=== PATIENT | female | born 1965 | race Caucasian/White ===

== ENCOUNTER 2023-04-02 12:27 | Emergency (ER) | payer MEDICARE, SELFPAY ==
[2023-04-02 12:37] VITALS: BP 130/79; PULSE 90; RESP 18; TEMP 36.9; O2SAT 98
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
[2023-04-02 13:15] LABS: Lactate 1.4 mmol/L (0.6-1.4)
[2023-04-02] MEDS: Lactated Ringers 1,000 ML 1000 ML IV (13:15)
[2023-04-02] MEDS: ACETAMINOPHEN 1,000 MG/100 ML BTL 400 MG IVPB (13:15)
[2023-04-02] MEDS: Normal Saline 50 ML (13:15)
[2023-04-02 13:17] LABS: Bilirubin Negative (Negative); Blood Small (Negative); Clarity Cloudy (Clear); Glucose Negative (Negative); Ketones Negative (Negative); Leukocyte Esterase Moderate (Negative); Nitrite Positive (Negative); Specific Gravity 1.015 (1.005-1.025); Urobilinogen 0.2 mg/dL (Up to 0.2)
[2023-04-02 13:19] LABS: Abs Immature Grans 0.05 10^3/uL (0.0-0.06); Absolute Basophil Count 0.06 10^3/uL (0.0-0.2); Absolute Eosinophil Count 0.13 10^3/uL (0.0-0.7); Absolute Lymphocyte Count 2.36 10^3/uL (1.2-3.4); Absolute Monocyte Count 1.45 10^3/uL (0.1-0.8); Absolute Neutrophil Count 10.73 10^3/uL (1.2-6.7); Basophils % 0.4; Eosinophils % 0.9; HCT 44.9 % (36.0-46.0); Immature Grans % 0.3; MCH 30.2 pg (27.0-33.0); MCHC 33.4 % (32.0-36.0); MCV 90 fL (80-95); MPV 10.5 fL (8.0-11.0); Monocytes % 9.8; Neutrophils % 72.6; Platelet Count 402 10^3/uL (130-400); RBC 4.97 10^6/uL (3.93-5.22); RDW 13.2 % (11.7-14.6); RDW-SD 44.6 fL; WBC 14.78 10^3/uL (4.4-10.8)
[2023-04-02 13:22] LABS: ESR 5 mm/hr (0-30)
[2023-04-02 13:25] LABS: WBC 20-50 HPF (0-5)
[2023-04-02 13:26] LABS: Bacteria Many HPF (Negative); C & S Indicated? Yes; Casts Negative LPF (Negative); Crystals Negative HPF (Negative); Epithelial Cells Few HPF (Negative); Mucus Negative (Negative)
[2023-04-02 13:30] LABS: C-Reactive Protein 0.95 mg/dL (0.0-0.3); Lipase 53 U/L (16-77)
[2023-04-02] MEDS: Pantoprazole 40 MG VIAL IVP (13:30)
[2023-04-02 13:50] LABS: ALT 18 U/L (14-59); AST 13 U/L (15-37); Albumin 3.5 g/dL (3.4-5.0); Alkaline Phosphatase 89 U/L (46-116); Anion Gap 9.7 mmol/L (3-11); BUN 8 mg/dL (7-18); Bilirubin, Total 0.3 mg/dL (0.2-1.0); CO2 26.3 mmol/L (21.0-32.0); Calcium 8.9 mg/dL (8.5-10.1); Chloride 104 mmol/L (98-107); Glucose 93 mg/dL (74-106); Magnesium 2.3 mg/dL (1.8-2.4); Potassium 3.8 mmol/L (3.5-5.1); Sodium 140 mmol/L (136-145); Total Protein 6.9 g/dL (6.4-8.2); Troponin I < 50 ng/L (<or=60)
[2023-04-02] MEDS: Omnipaque 350 MG/ML 100 ML BTL IJ (14:28)
[2023-04-02] MEDS: Normal Saline - Diluent 50 ML VIAL IJ (14:29)
--- NOTE | 2023-04-02 14:35 | DI.CT_ITS ---
Exam(s) CT ABDOMEN PELVIS W EXAM: CT ABDOMEN PELVIS W CLINICAL HISTORY: LLQ tenderness. TECHNIQUE: Imaging Protocol: Axial computed tomography images with coronal and sagittal reformatted images were created and reviewed CONTRAST MATERIAL: Intravenous: Omnipaque 350 Contrast volume:100 ml Oral: / no COMPARISON: No exams were available for comparison FINDINGS: ABDOMEN and PELVIS: Lung Bases: No acute findings. Liver: Normal density. No measurable mass. Gallbladder and biliary tract: No radiodense calculus or dilation. Pancreas: Normal density. No abnormal calcifications or inflammatory process. No evidence of mass. Spleen: Normal. Kidneys: Normal size, contour and axis. nonobstructing stone lower pole left kidney. No obstructive uropathy. No suspicious masses seen. Adrenal glands: small left adrenal adenoma. no follow-up recommended. Vasculature: Abdominal aorta non-dilated. Atherosclerotic changes. Soft tissues: Unremarkable. Bladder: No gross wall thickening. No calculi.No focal mass. Bowel: No obstruction. Diffuse colonic wall thickening, consistent with colitis. Scattered diverti cula. Appendix normal. Peritoneal cavity: No ascites. No focal collection or mesenteric inflammatory response. Bones: Unremarkable for age. Reproductive organs: metallic density within uterus. Clinical correlation recommended. Lymph nodes: Unremarkable. IMPRESSION:: Findings consistent with diffuse colitis. Findings called to Abdoulaye Mccormick of the emergency department. RADIATION DOSE DELIVERED: Total DLP DATA REPOSITORY: All CT scans at this facility are submitted to the National Radiology Data Registry (NRDR) Dose Index Registry (DIR) with the [employer] (ACR). RADIATION OPTIMIZATION: All CT scans at this facility use at least one of these dose optimization te chniques: automated exposure control; mA and/or kV adjustment per patient size (includes targeted exa ms where dose is matched to clinical indication); or iterative reconstruction.
[2023-04-02 15:05] VITALS: O2SAT 98
[2023-04-02 15:06] VITALS: BP 113/68; PULSE 75; O2SAT 98
[2023-04-02 15:10] VITALS: O2SAT 98
== END 2023-04-02 15:25 | disposition home or self-care (01) ==
PROVIDERS: Emergency Provider Physician Assistant
DX: R10.32 Left lower quadrant pain (principal); N39.0 Urinary tract infection, site not specified; K29.70 Gastritis, unspecified, without bleeding; R11.0 Nausea; K52.9 Noninfective gastroenteritis and colitis, unspecified
CPT/HCPCS: 36415; 80053; 81025; 83690; 85652; 87077; 96361; 96374; 96375; 99285; 74177; 81003; 81015; 83605; 83735; 84484; 85025; 86140; 87086; 87186; 99283; J0131; J3490

== ENCOUNTER → 2023-04-15 10:51 | Outpatient (BNVA) | payer MEDICARE, SELFPAY | PROVIDERS: Visit Provider Surgery | DX: R19.7 Diarrhea, unspecified (principal); R53.83 Other fatigue; D36.9 Benign neoplasm, unspecified site; K29.70 Gastritis, unspecified, without bleeding; R10.9 Unspecified abdominal pain; R14.0 Abdominal distension (gaseous) | CPT/HCPCS: 99215 ==

== ENCOUNTER 2023-04-19 04:30 | Outpatient (CLI) | payer MEDICARE, SELFPAY ==
[2023-04-19 12:08] LABS: Abs Immature Grans 0.03 10^3/uL (0.0-0.06); Absolute Basophil Count 0.09 10^3/uL (0.0-0.2); Absolute Eosinophil Count 0.14 10^3/uL (0.0-0.7); Absolute Lymphocyte Count 3.33 10^3/uL (1.2-3.4); Absolute Monocyte Count 0.87 10^3/uL (0.1-0.8); Basophils % 0.7; Eosinophils % 1.1; HCT 42.6 % (36.0-46.0); HGB 13.8 g/dL (11.2-15.7); Immature Grans % 0.2; Lymphocytes % 25.7; MCH 29.2 pg (27.0-33.0); MCHC 32.4 % (32.0-36.0); MCV 90 fL (80-95); MPV 9.3 fL (8.0-11.0); Monocytes % 6.7; Neutrophils % 65.6; Platelet Count 383 10^3/uL (130-400); RBC 4.72 10^6/uL (3.93-5.22); RDW 13.2 % (11.7-14.6); RDW-SD 43.7 fL; WBC 12.95 10^3/uL (4.4-10.8)
[2023-04-19 12:18] LABS: C-Reactive Protein 0.67 mg/dL (0.0-0.3)
[2023-04-22 12:14] LABS: Lyme Ab w Rflx to Lyme Confirm Positive (Negative)
[2023-04-22 13:29] LABS: Lyme IgG Ab Positive (Negative); Lyme IgM Ab Negative (Negative)
[2023-04-22 14:47] LABS: ANCA Interpretation Negative (Negative)
[2023-04-23 00:51] LABS: Anaplasma phagocytophilum Negative (Negative); B. miyamotoi PCR Negative (Negative); Babesia divergens/MO-1 Negative (Negative); Babesia duncani Negative (Negative); Babesia microti Negative (Negative); Ehrlichia chaffeensis Negative (Negative); Ehrlichia ewingii/canis Negative (Negative); Ehrlichia muris eauclairensis Negative (Negative)
== END 2023-04-19 04:31 | disposition home or self-care (01) ==
LOC: LBO 04:30
PROVIDERS: Visit Provider Surgery
DX: D36.9 Benign neoplasm, unspecified site (principal); K52.9 Noninfective gastroenteritis and colitis, unspecified; N39.0 Urinary tract infection, site not specified; R14.0 Abdominal distension (gaseous); R53.83 Other fatigue; C50.919 Malignant neoplasm of unspecified site of unspecified female breast
CPT/HCPCS: 36415; 86255; 86617; 87505; 87798; 85025; 86140; 86618

== ENCOUNTER 2023-04-19 11:54 | Outpatient (REF) | payer MEDICARE, SELFPAY ==
[2023-04-19 21:13] LABS: Campylobacter PCR Negative (Negative); Salmonella PCR Negative (Negative); Shiga Toxin PCR Negative (Negative); Shigella/Enteroinvasive Ecoli Negative (Negative)
[2023-04-23 18:18] LABS: Calprotectin 147 mcg/g
== END 2023-04-19 11:55 | disposition home or self-care (01) ==
LOC: LBN 11:54
PROVIDERS: Visit Provider Surgery
DX: D36.9 Benign neoplasm, unspecified site (principal); K29.70 Gastritis, unspecified, without bleeding; K52.9 Noninfective gastroenteritis and colitis, unspecified; N39.0 Urinary tract infection, site not specified; R53.83 Other fatigue
CPT/HCPCS: 87505; 83993

== ENCOUNTER 2023-04-23 10:57 | Day surgery (SDC) | payer MEDICARE, SELFPAY ==
--- NOTE | 2023-04-22 18:06 | ANES.PREOP_ITS ---
General Info Date of Service Date Performed: 04/23/23 Height: 5 ft 3 in Weight: 62.766 kg Body Mass Index (BMI): 24.5 Surgical Procedure: Operation Date: 04/23/23 12:35 Proposed Procedure Side Surgeon p Colonoscopy/Gastroscopy Jaun Null MD Meds Allergies and Home Medications Allergies Allergy/AdvReac Type Severity Reaction Status Date / Time doxycycline Allergy Severe Anaphylaxis Unverified 04/23/23 11:38 tetracycline Allergy Severe Anaphylaxis Unverified 04/23/23 11:38 Home Medication Medication Instructions Recorded pantoprazole 20 mg tablet,delayed 20 mg PO DAILY gastritis 30 days 04/02/23 release #30 tabs albuterol 90 mcg-budesonide 80 2 inh inhalation ONCE PRN 04/15/23 mcg/actuation HFA aerosol inhaler atorvastatin 40 mg tablet 40 mg PO QHS 04/15/23 cholecalciferol (vitamin D3) 125 125 mcg PO DAILY 04/15/23 mcg (5,000 unit) capsule clonazepam 1 mg tablet 1 mg PO DAILY PRN 04/15/23 lisinopril 40 mg tablet 40 mg PO DAILY 04/15/23 lithium carbonate 600 mg capsule 600 mg PO QHS 04/15/23 mecobalamin (vitamin B12) 1,000 1,000 mcg PO DAILY 04/15/23 mcg chewable tablet paroxetine HCl 30 mg tablet (Paxil) 30 mg PO DAILY 04/15/23 trazodone 100 mg tablet 100 mg PO QHS 04/15/23 Current Visit Medications: Current Medications Generic Name Dose Route Start Last Admin Trade Name Freq PRN Reason Stop Dose Admin Ringer's Solution 1,000 mls @ 80 mls/hr 04/23/23 06:00 IV 04/23/23 23:59 INFUSION ALEXA IV Miscellaneous Supplies 1 each 04/23/23 06:00 Iv Access IV 04/23/23 23:59 DIRECTED ALEXA Sodium Chloride 0 ml 04/23/23 06:00 Normal Saline Flush 10 Ml Syr IV 04/23/23 23:59 PRN PRN Sodium Chloride 0 ml 04/23/23 06:00 Normal Saline 10 Ml Vial IJ 04/23/23 23:59 DIRECTED PRN Sterile Water 0 ml 04/23/23 06:00 Water,Injection,Sterile 10 Ml Vial IJ 04/23/23 23:59 DIRECTED PRN PFSH Active Problems Active Problems: Problem Status Onset Code Abdominal bloating R14.0 Abdominal pain R10.9 Ileocolitis K52.9 Adenomatous polyps D36.9 Acute diarrhea R19.7 Fatigue R53.83 Gastritis K29.70 Urinary tract infection N39.0 Colitis K52.9 Medical History Medical History (Updated 04/23/23 @ 11:34 by Monae Churchill RN) Smoker Vertigo Fibroid uterus pt unaware of this diagnosis, never been discussed with pt [employer] (inclusion body myositis) Dysuria Peripheral artery disease Anxiety Depression HLD (hyperlipidemia) Asthma Systemic hypertension Tobacco Smoking/Tobacco Use Status: Current every day Tobacco Type: cigarettes Smoking cigarettes per day: 5 Alcohol Alcohol Intake: current Alcohol intake frequency: holidays/special occasions only Alcohol type: beer and wine Substance Use Substance use type: does not use Vital Signs and Lab Results Vital Signs Most Recent Vital Signs in EMR: Temp Pulse Resp BP Pulse Ox 36.0 C L 76 16 137/86 97 04/23/23 11:27 04/23/23 11:27 04/23/23 11:27 04/23/23 11:27 04/23/23 11:27 Lab Results Blood Type / Crossmatch: No Data to Display Complete Blood Count: White Blood Count 12.95 10^3/uL (4.4-10.8) H 04/19/23 11:54 Red Blood Count 4.72 10^6/uL (3.93-5.22) 04/19/23 11:54 Hemoglobin 13.8 g/dL (11.2-15.7) 04/19/23 11:54 Hematocrit 42.6 % (36.0-46.0) 04/19/23 11:54 Platelet Count 383 10^3/uL (130-400) 04/19/23 11:54 Venous Blood Lactate 1.4 mmol/L (0.6-1.4) 04/02/23 13:13 Complete Metabolic Panel: Sodium 140 mmol/L (136-145) 04/02/23 12:50 Potassium 3.8 mmol/L (3.5-5.1) 04/02/23 12:50 Chloride 104 mmol/L (98-107) 04/02/23 12:50 Carbon Dioxide 26.3 mmol/L (21.0-32.0) 04/02/23 12:50 BUN 8 mg/dL (7-18) 04/02/23 12:50 Creatinine 1.0 mg/dL (0.55-1.02) 04/02/23 12:50 Est GFR (CKD-EPI 2020) 65.30 (mL/min/1.73m2) 04/02/23 12:50 Magnesium 2.3 mg/dL (1.8-2.4) 04/02/23 12:50 Calcium 8.9 mg/dL (8.5-10.1) 04/02/23 12:50 Albumin 3.5 g/dL (3.4-5.0) 04/02/23 12:50 Glucose 93 mg/dL (74-106) 04/02/23 12:50 C-Reactive Protein 0.67 mg/dL (0.0-0.3) H 04/19/23 11:54 Liver Function Panel: Alanine Aminotransferase (ALT/SGPT) 18 U/L (14-59) 04/02/23 12: 50 Aspartate Amino Transf (AST/SGOT) 13 U/L (15-37) L 04/02/23 12: 50 Coagulation Panel: No Data to Display Cardiac Panel: Troponin I < 50 ng/L (<or=60) 04/02/23 Arterial Blood Gas: No Data to Display Venous Blood Gas: No Data to Display Pancreas Panel: Lipase 53 U/L (16-77) 04/02/23 12:50 Thyroid Panel: No Data to Display Infectious Disease: No Data to Display Blood Cultures: No Data to Display Toxicology Panel: No Data to Display Anesthesia Assessment and Plan Anesthesia History Personal History: No History of Anesthesia Complications Family History: No Family History of Anesthesia Complications Exercise Tolerance Exercise Tolerance: Metabolic Equivalents>4 Cardiac & Pulmonary Exam Cardiac Exam: Normal S1/S2 Heart Sounds Pulmonary Exam: Clear Bilateral Breath Sounds Implantable Cardiac Device Does patient have a Pacemaker or an ICD?: No Airway Exam Known Difficult Airway: No Mallampati Class: 3 Mouth Opening: Narrow (< 3cm) Thyromental Distance: Less than 3 cm Neck Range of Motion: Full ROM Neck Circumference: Normal Teeth Condition: Normal Dentition ASA Classification ASA Score: ASA 2 Emergency Case?: No NPO Status NPO Status: NPO Clears >2 hours, Solids >8 hours Anesthesia Plan Resuscitation Status: Full Code Anesthesia Technique: General Anesthesia Airway Planned: Natural Airway Monitors Used: Standard Monitors Preoperative Comments:: 58 yo female for egd/colo. Sig PMHx: HTN, PAD (legs), asthma, depression/anxiety, daily smoker, occ EtOH. Previous Anes: - colo at [facility], no record, but listed no complications on op note.
[2023-04-23 11:27] VITALS: BP 137/86; PULSE 76; RESP 16; TEMP 36; O2SAT 97
[2023-04-23 11:57] VITALS: BMI 24.5
--- NOTE | 2023-04-23 12:07 | COLE_ITS ---
Date of service: 04/23/23 Time of Service: 12:07 Colonoscopy Report Procedure Description: PROCEDURES PERFORMED: 1. Colonoscopy with cold forceps biopsies PREOPERATIVE DIAGNOSIS: Colon polyp, colitis, diarrhea POSTOPERATIVE DIAGNOSIS: Pandiverticulosis, mild hemorrhoids SURGEON: Arely Null MD INDICATION FOR PROCEDURE: The patient is a 58-year-old woman who has been having some bowel habit changes. She has had diarrhea now for couple of years. She has cramping abdominal pain on and off. She has had ER visits and cross- sectional imaging suggesting colitis. Aside from this, she has a history of a persistent colon polyp and has required annual colonoscopies to keep removing it each time. There is no family history of colon cancer. FINDINGS: Terminal ileum looked normal. Cold forceps biopsies were taken here to assess microscopically. The mucosa throughout all appeared normal and without inflammation. Random cold forceps biopsies were taken because of her symptoms. The tattoo site is probably about mid transverse colon. It is definitely distal to the hepatic flexure. I did not see any residual polyp or visible evidence of regrowth. There were no new polyps. There are scattered, rare diverticuli throughout her entire colon but without evidence of inflammation. Mild internal (grade 1) and external hemorrhoids were noted. SURVEILLANCE interval/FOLLOW-UP: Considering the history of a polyp with high- grade dysplasia and that this colonoscopy is only 3-4 months since that resection, I would say another colonoscopy should be done in a year. She should follow-up with her GI doctors and/or PCP. SPECIMENS: Yes EBL: Minimal COMPLICATIONS: None QUALITY of prep: Excellent Procedure in detail: The patient gave written consent and was in agreement with the indications, the potential risks as well as the benefits of the procedure. She was turned from upper endoscopy (see separate procedure note) and kept in the same position and anesthesia was continued. I started the colonoscopy portion of the procedure. Digital rectal and visual examination was performed and grossly within normal limits. A well-lubricated flexible colonoscope was then introduced and passed without any notable difficulty all the way to the cecum identified by the ileocecal valve and the appendiceal orifice. The terminal ileum was intubated and appeared normal visually. The scope was then slowly withdrawn with the above-noted findings. The patient tolerated the procedure well and was taken to the PACU in hemodynamically stable condition.
--- NOTE | 2023-04-23 12:07 | W.PM.ENDDOP ---
Date of service: 04/23/23 Time of Service: 12:07 Endoscopy Report PROCEDURE DESCRIPTION: PROCEDURES PERFORMED: 1. EGD with biopsies PREOPERATIVE DIAGNOSIS: Epigastric pain POSTOPERATIVE DIAGNOSIS: Normal foregut SURGEON: Arely Null MD INDICATION for procedure: 58-year-old woman who had an episode of epigastric pain about a month ago or so and was placed on antacid medication and had resolving symptoms leading to a presumed diagnosis of gastritis/peptic ulcer disease warranting EGD assessment. FINDINGS: D2/D3 = normal -multiple biopsies were taken (x 4) to rule out celiac disease D1/bulb = normal - no ulcers or inflammation Pylorus = normal Antrum = normal appearance, no ulcers, cold forceps biopsies were taken to rule out H. pylori routinely Body = normal appearance, biopsies taken with cold forceps technique routinely Fundus = normal, no polyps Cardia = normal Hiatus = no hiatal hernia Distal esophagus = no inflammation, no esophagitis, no Xiao's, no stricture. I did not take biopsies because it appeared normal and she has no symptoms to suggest esophagus problems. Mid esophagus = normal Proximal esophagus/hypopharynx/vocal cords = normal SURVEILLANCE-INTERVAL/FOLLOW-UP: Follow-up with PCP and/your GI doctors, no surveillance necessary Specimens: Yes EBL: Minimal COMPLICATIONS: None Procedure in detail: The patient gave written consent and was in agreement with the indications, the potential risks as well as the benefits of the procedure. The patient was taken to the endoscopy suite and laid on their left side. Anesthesia was given which was tolerated well. We performed a timeout and we are in agreement I started the procedure. A well-lubricated endoscope was gently and carefully advanced down the esophagus, into the stomach the scope was and through the pylorus into the duodenum. The scope was then slowly withdrawn with the above-noted findings/interventions. The patient tolerated the procedure well and was then turned for colonoscopy (see separate procedure note).
--- NOTE | 2023-04-23 12:09 | W.PM.DSUDISC ---
Date of service: 04/23/23 Time of Service: 12:09 Discharge Plan Disposition Patient Disposition: Home Condition: Good Discharge Details Attending Provider: Jaun Null Primary Care Provider: Cecelia,Local Home Meds and New Rx's Prescriptions: No Action trazodone 100 mg tablet 100 mg PO QHS clonazepam 1 mg tablet 1 mg PO DAILY PRN lithium carbonate 600 mg capsule 600 mg PO QHS paroxetine HCl [Paxil] 30 mg tablet 30 mg PO DAILY lisinopril 40 mg tablet 40 mg PO DAILY atorvastatin 40 mg tablet 40 mg PO QHS albuterol-budesonide 90-80 mcg/actuation HFA aerosol inhaler 2 inh inhalation ONCE PRN Rx Instructions: as a single dose; may repeat up to 6 doses per day (12 inhalations) mecobalamin (vitamin B12) 1,000 mcg tablet,chewable 1,000 mcg PO DAILY cholecalciferol (vitamin D3) 125 mcg (5,000 unit) capsule 125 mcg PO DAILY pantoprazole 20 mg tablet,delayed release (DR/EC) 20 mg PO DAILY 30 Days Qty: 30 0RF Discharge Instructions Additional Instructions: FINDINGS: On your upper endoscopy, your esophagus, stomach in the beginning of your small intestine all look normal. No ulcers were found. No inflammation was seen. It all looks healthy. As promised, I took multiple biopsies at all of these locations to assess the microscopically but these results might come back as completely normal. On the colonoscopy, no inflammation was seen. The end of your small intestine was visualized and biopsies were taken there but this also appeared normal. I took biopsies throughout your entire colon randomly in order to assess it under a microscope. You do have MILD diverticulosis which is an extremely common condition, benign and usually causes no symptoms whatsoever. Diverticulosis is NOT the cause of your diarrhea and would not be the explanation for possible colitis that was seen on your CT scan. Mild hemorrhoid disease is also present but again, benign and if it does not cause symptoms, nothing needs to be done about it. Also on the colonoscopy, the tattoo site from the prior polyp removal was seen. There is no visible evidence that the polyp is growing back with any remains. You should probably do another colonoscopy in 1 year because of that polyp removal however. Follow-up with your regular GI doctor(s) and/your primary care physician. Stand Alone Forms: Colonoscopy Post Instructions Activity:: Activity as Tolerated Diet:: As Tolerated
[2023-04-23] MEDS: Lactated Ringers 1,000 ML 80 ML IV (12:25)
--- NOTE | 2023-04-23 12:33 | W.ANESVAS ---
Peripheral IV Placement Date Performed: 04/23/23 Procedure Time: 12:20 Requesting Provider: Yefri Josue Procedure Location: Day Surgery Unit Sedation Given (Indicate Dose Given): No Sedation given Patient Mental Status: Awake Laterality: Left Insertion Site: Antecubital Size & Type: 20 ga. Dressing: Tegaderm Applied Ultrasound: Sterile probe cover and gel used Ultrasound Image Saved?: Yes Number of Attempts (See previous attempts in note section): 2 Procedure Tolerated: No Complications Procedure Outcome: Successful Performed By: Yefri Josue
--- NOTE | 2023-04-23 12:42 | BOWEL_PTH ---
PATIENT: Angle Barbosa LOC: [facility] U#:[id number] AGE/SX: 58/F ROOM: RE04/23/[address]: Jaun Null : 1965 BED: DIS: 04/23/2023 SPEC #: [id number] RECD: 04/23/23 16:07 STATUS: LEATHA [place] #: [id number] GERARDO: 04/23/23 12:[address]: Jaun Null DEPT: Surgical Specimen RECD BY: Anjelica Tineo ENTERED: 04/23/23 16:09 SP TYPE: Bowel OTHR DR: No Local Tissues: 1 - BIOPSY BOWEL 2 - STOMACH BIOPSY 3 - STOMACH BIOPSY 4 - BIOPSY BOWEL 5 - BIOPSY BOWEL Procedures: GROSS AND MICRO LEVEL 4 Comments: [id number]
[2023-04-23 13:18] VITALS: BP 127/69; PULSE 74; RESP 16; TEMP 36.2; O2SAT 99
--- NOTE | 2023-04-23 13:21 | W.ANESPOSTOP ---
Postoperative Evaluation Date, Time and Location Date Performed: 04/23/23 Time Performed: 13:21 Patient Location: Day Surgery Unit Vital Signs Most Recent Imported Vital Signs: Most Recent Vital Signs Temp Pulse Resp BP Pulse Ox 36.2 C L 74 16 127/69 99 04/23/23 13:18 04/23/23 13:18 04/23/23 13:18 04/23/23 13:18 04/23/23 13:18 Pain Score Most Recent Pain Score: Most Recent Pain Score Pain Level 0 04/23/23 13:18 Assessment Mental Status: Arousable with meaningful communication Airway and Respiratory Function: Patent airway with normal (patient baseline) respiratory exam Cardiovascular Function: Hemodynamically Stable Hydration Status: Adequately Hydrated Nausea & Vomiting: No Nausea or Vomiting Pain: Pt. Denies Any Pain Peripheral Nerve Block: Patient did not receive a nerve block
[2023-04-23 13:48] VITALS: BP 154/78; PULSE 65; RESP 16; TEMP 36.1; O2SAT 100
== END 2023-04-23 14:30 | disposition home or self-care (01) ==
PROVIDERS: Visit Provider Student in an Organized Health Care Education/Training Program
PROC: (CPT 45380; principal; 2023-04-23 12:30)
DX: K52.9 Noninfective gastroenteritis and colitis, unspecified; K29.70 Gastritis, unspecified, without bleeding; R10.9 Unspecified abdominal pain; R53.83 Other fatigue; I10 Essential (primary) hypertension; F17.200 Nicotine dependence, unspecified, uncomplicated; F10.20 Alcohol dependence, uncomplicated; F41.8 Other specified anxiety disorders; K57.30 Diverticulosis of large intestine without perforation or abscess without bleeding; K64.0 First degree hemorrhoids
CPT/HCPCS: 45380; 43239; 00123; 76942; 88305; J2001; J2405; J2704

== ENCOUNTER 2023-06-15 16:41 | Outpatient (REF) | payer MEDICARE, SELFPAY | END 2023-06-15 16:42 | disposition home or self-care (01) | LOC: LBN 16:41 | PROVIDERS: Visit Provider Nurse Practitioner Family | DX: R30.0 Dysuria (principal) | CPT/HCPCS: 87086 ==

== ENCOUNTER → 2023-08-08 04:03 | Outpatient (CLI) | payer MEDICARE, SELFPAY ==
--- NOTE | 2023-08-08 08:45 | DI.US_ITS ---
Exam(s) US PELVIS TRANSVAGINAL EXAM: US PELVIS TRANSVAGINAL CLINICAL HISTORY: CT follow up. ? Metalic object in uterus, FOREIGN BODY UTERUS TECHNIQUE: Transabdominal and transvaginal imaging was performed using standard protocol. COMPARISON: CT CT ABDOMEN PELVIS W from 04/02/2023 FINDINGS: UTERUS: Mildly retroverted. 4.6 x 3.6 x 3.5 cm cm Endometrium: Not visualized Myometrium: 1 centimeter echogenic shadowing focus in the myometrium near the fundus, eccentric towar d the right. Findings could represent a dense calcification versus metallic foreign body. Cervix: Unremarkable. OVARIES: Right: Cyst or mass: None. Left: Cyst or mass: None. DOPPLER: Color: Symmetric and uniform flow to both ovaries. No hyperemia. CUL-DE-SAC: Free fluid: None. IMPRESSION: 1. One centimeter echogenic focus in myometrium may represent densely calcified fibroid. Foreign bod y also possibility. 2. Unremarkable bilateral ovaries. DATA REPOSITORY:
== END ==
PROVIDERS: Visit Provider Obstetrics & Gynecology
DX: T19.3XXA Foreign body in uterus, initial encounter (principal); X58.XXXA Exposure to other specified factors, initial encounter
CPT/HCPCS: 76830; 76856

== ENCOUNTER 2024-03-10 17:02 | Outpatient (REF) | payer MEDICARE, SELFPAY | END 2024-03-10 17:03 | disposition home or self-care (01) | LOC: NCHCN 17:02 | PROVIDERS: Visit Provider Nurse Practitioner Family | DX: N30.01 Acute cystitis with hematuria (principal) | CPT/HCPCS: 87077; 87086; 87186 ==

== ENCOUNTER 2024-04-10 14:53 | Outpatient (REF) | payer MEDICARE, SELFPAY ==
[2024-04-03 21:37] LABS: Bacteria Negative HPF (Negative); C & S Indicated? C&S Done As Ordered; Crystals Negative HPF (Negative); Epithelial Cells Few HPF (Negative); Mucus Negative (Negative); RBC 0-2 HPF (0-2); WBC 0-2 HPF (0-5)
--- OUTSIDE RECORDS SUMMARY | 2024-04-10 14:57 | XMS_ITS | Continuity of Care Document ---
Author Organization [facility] Address [address] [place] [address] Care Team Providers Care Manufacturing Area Manager Name Role Phone Nahid Marcum MD Primary Care Physician [phone] Encounter Date(s): 06/10/23 - 06/10/[address] [address] [place] Discharge Disposition: Home or Self Care Attending Physician: Mayela Mobley DO Allergies, Adverse Reactions, Alerts Substance Criticality Severity Reaction Reaction Severity Status doxycycline critical Active tetracycline critical Active Assessment and Plan Future Scheduled Tests Radiology* MRI Brain w/ + w/o Contrast 06/07/23 Medications acetaminophen-codeine 300 mg-30 mg oral tablet codeine phosphate, 1 tab, Oral, Every 4 hr, PRN as needed for pain, 0 Refill(s) Start Date: 05/22/22 Status: Ordered albuterol 0.63 mg/3 mL (0.021%) inhalation solution 3 mL, NEB, 4 times/day, # 75 mL, 0 Refill(s) Start Date: 05/22/22 Status: Ordered ARIPiprazole 5 mg oral tablet 1 tab, Oral, Daily, # 30 tab, 0 Refill(s) Start Date: 05/22/22 Status: Ordered aspirin 81 mg oral capsule 1 cap, Oral, Daily, do not exceed 48 capsules in 24 hours, # 30 cap, 0 Refill(s) Start Date: 05/22/22 Status: Ordered atorvastatin 20 mg oral tablet 1 tab, Oral, Daily, # 30 tab, 0 Refill(s) Start Date: 05/22/22 Status: Ordered Breo Ellipta 100 mcg-25 mcg/inh inhalation powder 1 puffs, Inhalation, Daily, # 30 EA, 0 Refill(s) Start Date: 05/22/22 Status: Ordered Claritin 10 mg oral tablet 1 tab, Oral, Daily, # 30 tab, 0 Refill(s) Start Date: 05/22/22 Status: Ordered clonazePAM 0.5 mg oral tablet, disintegrating 1 tab, Oral, 3 times/day, As needed, 0 Refill(s) Start Date: 05/22/22 Status: Ordered dicyclomine 10 mg oral capsule 2 cap, Oral, 4 times/day, # 56 cap, 0 Refill(s) Start Date: 05/22/22 Stop Date: 05/29/22 Status: Ordered lamoTRIgine 150 mg oral tablet 1 tab, Oral, Daily Start Date: 05/31/22 Status: Ordered lisinopril 40 mg oral tablet 1 tab, Oral, Daily, # 30 tab, 0 Refill(s) Start Date: 05/22/22 Status: Ordered lithium carbonate 600 mg, Oral, Daily, 2 tabs daily, 0 Refill(s) Start Date: 05/22/22 Status: Ordered PARoxetine 30 mg oral tablet 1 tab, Oral, Daily, # 30 tab, 0 Refill(s) Start Date: 05/22/22 Status: Ordered Proventil HFA 90 mcg/inh inhalation aerosol 2 puffs, Inhalation, 4 times/day, PRN as needed for wheezing, # 6.7 g, 0 Refill(s) Start Date: 05/22/22 Status: Ordered Pyridium 100 mg oral tablet 1 tab, Oral, 3 times/day (after meals), 0 Refill(s) Start Date: 05/22/22 Status: Ordered traZODone 150 mg oral tablet tab, Oral, 1-2 tablet every night as neeeded, 0 Refill(s) Start Date: 05/22/22 Status: Ordered Problem List Condition Confirmation Course Effective Dates Status Health Status Informant Bipolar 1 disorder, depressed Confirmed Active Atypical nevus Confirmed Active Dysuria Confirmed Active Generalized anxiety disorder Confirmed Active History of migraine headaches Confirmed Active Hx of adenomatous colonic polyps Confirmed Active Hx of diverticulitis of colon Confirmed Active Hypercholesteremia Confirmed Active Hypertension Confirmed Active Insomnia Confirmed Active IBS (irritable bowel syndrome) Confirmed Active Facet syndrome, lumbar Confirmed Active Abnormal brain MRI Confirmed Active Migraine headache with aura Confirmed Active Asthma, mild intermittent Confirmed Active MS (multiple sclerosis) Confirmed Active Panic disorder without agoraphobia Confirmed Active Peripheral artery disease Confirmed Active Post traumatic stress disorder (PTSD) Confirmed Active Seasonal allergies Confirmed Active Tobacco abuse Confirmed Active Fibroid uterus Confirmed Active Vertigo Confirmed Active Procedures Procedure Date Related Diagnosis Body Site Status Lumbar puncture 1 08/01/22 Complet ed 1Auto updated by Procedure update script. Procedure Date: AUGUST 01, 2022 Social History Social History Type Response Smoking Status Current every day sm oker; Type: Cigarettes; Exposure to Secondhand Smoke: Yes; Number of cigarettes per day 3-4; entered on: 12/11/22 Sex Female Patient Care team information Care Team Personnel Name: Nahid Marcum MD Position: Physician - Orthopaedic Surgery Member Role: Primary Care Provider Address: Address: [address] [place] [phone] [place] Care Team Related Persons Name: OMAR SLATER
--- OUTSIDE RECORDS SUMMARY | 2024-04-10 14:57 | XMS_ITS | Continuity of Care Document ---
Author Organization [facility] Address [address] [address] Care Team Providers Care Professor Of Marketing Name Role Phone Nahid Marcum MD Primary Care Physician [phone] Encounter Date(s): 05/12/23 - 05/12/23 [facility] [place] [address]- [place] Discharge Disposition: Home or Self Care Allergies, Adverse Reactions, Alerts Substance Reaction Severity Status doxycycline critical Active tetracycline [...] Type Response Smoking Status Current every day kelly nassar; Type: Cigarettes; Exposure to Secondhand Smoke: Yes; Number of cigarettes per day 3-4; entered on: 12/11/22 Sex Female Patient Care team information Care Team Personnel Name: Nahid Marcum MD Position: Physician - Orthopaedic Surgery Member Role: Primary Care Provider Address: Address: [address] [place] [phone] [place] Care Team Related Persons Name: OMAR SLATER
--- OUTSIDE RECORDS SUMMARY | 2024-04-10 14:58 | XMS_ITS | Encounter Summary ---
Author Organization [facility] Address [address] [place] [address] Care Team Providers Care Instrument Mechanic Weapons System Name Role Phone Unknown, Provider Primary Care Provider Unava ilable Encounter Details Date Type Department Care Team (Late st Contact Info) Description 04/19/2023 Lab Requisition [facility] Pathology & Laboratory Medicine - [address] [address] Outr Resulting Lab, Provider Social History Tobacco Use Types Packs/Day Years Used Date Smoking Tobacco: Never Assessed Comments Unknown Sex and Gender Information Value Date Recorded Sex Assigned at Not on file Legal Sex Female 13:46 EST Gender Identity Not on file Sexual Orientation Not on file documented as of this encounter Plan of Treatment Not on file documented as of this encounter Procedures Procedure Name Priority Date/Time Associated Diagnosis Comments FECAL BACTERIAL PATHOGENS BY PCR Routine 04/18/2023 13:00 EST documented in this encounter Results * FECAL BACTERIAL PATHOGENS BY PCR (04/18/2023 13:00 EST) Salmonella PCR Negative Negative 04/19/2023 21:08 EST [facility] Shigella/Enteroin vasive E. coli Negative Negative 04/19/2023 21:08 EST [facility] HN LAB CAMPYLOBACTER PCR Negative Negative 04/19/2023 21:08 EST [facility] Shiga Toxin PCR Negative Negative 21:08 EST [facility] Feces SPECIMEN FROM RECTUM / Unknown 04/18/2023 13:00 EST 04/19/2023 17:39 EST us Provider Outr Resulting Lab MICROBIOLOGY - GENER AL ORDERABLES Final Result [facility] [address] [place] [address] documented in this encounter Visit Diagnoses Not on filedocumented in this encounter Care Teams Instrument Mechanic Weapons System Relationship Specialty Start Date End Date Unknown, Provider, PCP - General 04/08/23 documented as of this encounter
--- OUTSIDE RECORDS SUMMARY | 2024-04-10 14:58 | XMS_ITS | Referral Summary ---
Author Organization [facility] Address [address] [place] [address] Care Team Providers Care Beater Engineer Helper Name Role Phone Unknown, Provider Primary Care Provider Unava ilable Social History Tobacco Use Types Packs/Day Years Used Date Smoking Tobacco: Never Assessed Comments Unknown Sex and Gender Information Value Date Recorded Sex Assigned at Not on file Legal Sex Female 13:46 EST Gender Identity Not on file Sexual Orientation Not on file Plan of Treatment Not on file Insurance MEDICARE Care Teams Beater Engineer Helper Relationship Specialty Start Date End Date Unknown, Provider, PCP - General 04/08/23
--- OUTSIDE RECORDS SUMMARY | 2024-04-10 14:58 | XMS_ITS | Clinical Summary ---
Author Organization [facility] Address [address] [place] [address] Care Team Providers Care Churn Operator Name Role Phone Unknown, Provider Primary Care Provider Unava ilable Social History Tobacco Use Types Packs/Day Years Used Date Smoking Tobacco: Never Assessed Comments Unknown Sex and Gender Information Value Date Recorded Sex Assigned at Not on file Legal Sex Female 13:46 EST Gender Identity Not on file Sexual Orientation Not on file Plan of Treatment Health Maintenance Due Date Last Done Comments Hepatitis C Screen 1965 Hepatitis B Vaccine (1 of 3 - 19+ 3-dose series) 02/23 COVID-19 Vaccine (2023- season) 2023 Insurance [facility] MEDICARE Care Teams Churn Operator Relationship Specialty Start Date End Date Unknown, Provider, PCP - General 04/08/23
--- OUTSIDE RECORDS SUMMARY | 2024-04-10 14:58 | XMS_ITS | Encounter Summary ---
Author Organization [facility] Address [address] [place] [address] Care Team Providers Care Ceramic Designer Name Role Phone Unknown, Provider Primary Care Provider Unava ilable Encounter Details Date Type Department Care Team (Late st Contact Info) Description 04/19/2023 Lab Requisition [facility] Pathology & Laboratory Medicine - [facility] [address] [place] [address] Outr Resulting Lab, Provider Social History Tobacco [...] Procedure Name Priority Date/Time Associated Diagnosis Comments LYME ANTIBODY CONFIRMATION Today 04/19/2023 11:54 EST LYME AB Routine 04/19/2023 11:54 EST ANCA, IFA Routine 04/19/2023 11:54 EST documented in this encounter Results * (ABNORMAL) LYME ANTIBODY CONFIRMATION (04/19/2023 11:54 EST) Lyme IgG Antibody Positive(A) Negative 2023 13:24 EST [facility] Comment:Specific anti-Borrel ia burgdorfei IgG antibodies are detected. Lyme IgM Antibody Negative Negative 024 13:24 EST [facility] Comment:Specific anti-Borrel ia burgdorfei IgM antibodies are not detected. This does not exclude the possibility of B. burgdorferi infection. If exposure to B. burgdorferi is suspected, a second sample should be collected and tested 2-4 weeks later. Lyme Antibody Confirmation Interpretation See Comment 04/22/2023 13:24 EST [facility] Comment:Indicative of B. bur gdorferi infection at some time in the past. Blood VENOUS BLOOD / Unknown 04/19/2023 11:54 EST 04/19/2023 17:46 EST us Provider Outr Resulting Lab IMMUNOLOGY AND SEROL OGY ORDERABLES Final Result Performing Organization Address [facility] Co de Phone Number [facility] [address] [place] [address] * (ABNORMAL) LYME AB (04/19/2023 11:54 EST) Lyme Ab Positive( A) Negative 04/22/2023 12:09 EST [facility] Comment: Lyme confirmation added by reflex. The [employer] Lyme Liaison Lyme Total Antibody Plus assay contains antigens from Borrelia burgdorferi, Borrelia garinii, and Borelia afzelli. Results from the second-step confirmation tests that detect only B. burgdorferi specific antigens should be interpreted with caution. Blood VENOUS BLOOD / Unknown 04/19/2023 11:54 EST 04/19/2023 17:46 EST us Provider Outr Resulting Lab IMMUNOLOGY AND SEROL OGY ORDERABLES Final Result Performing Organization Address [facility] de Phone Number [facility] [address] [place] [phone] * ANCA, IFA (04/19/2023 11:54 EST) Pathologist [facility] Lab ANCA Interpretation Negative Negative 04/22/2023 14:42 EST [facility] Comment: No titer performed, ANCA Screen is negative. Results were obtained with the [employer] NOVA Lite ANCA kit by indirect immunofluorescence. Blood VENOUS BLOOD / Unknown 04/19/2023 11:54 EST 04/19/2023 17:46 EST us Provider Outr Resulting Lab IMMUNOLOGY AND SEROL OGY ORDERABLES Final Result Performing Organization Address [facility] Co de Phone Number [facility] [address] [place] [phone] documented in this encounter Visit Diagnoses Not on filedocumented in this encounter Care Teams Ceramic Designer Relationship Specialty Start Date End Date Unknown, Provider, PCP - General 04/08/23 documented as of this encounter
--- OUTSIDE RECORDS SUMMARY | 2024-04-10 14:58 | XMS_ITS | Encounter Summary ---
Author Organization [facility] Address [address] [place] [address] Care Team Providers Care Body Builder Apprentice Name Role Phone Unknown, Provider Primary Care Provider Unava ilable Encounter Details Date Type Department Care Team (Late st Contact Info) Description 04/24/2023 Lab Requisition [facility] Pathology & Laboratory Medicine - [facility] [address] [place] [address] Jaun Null MD [address] [place] [phone] Encounter for other general examination Social History Tobacco Use Types Packs/Day Years [...] Procedure Name Priority Date/Time Associated Diagnosis Comments SURGICAL PATHOLOGY Today 04/23/2023 12 :42 EST Encounter for other general examination documented in this encounter Results * SURGICAL PATHOLOGY (04/23/2023 12:42 EST) Note to Patient The following pathology results have been interpreted by your pathologist and may be available to you before your health provider has had the opportunity to review them. Please allow time for your provider to receive these results and explore management options, if applicable. 04/29/2023 10:[address] [facility] Final Diagnosis A. DUODENUM, BIOPSY: - Duodenal mucosa without significant diagnostic abnormality. B. STOMACH, ANTRUM, BIOPSY: - Antral mucosa without significant diagnostic abnormality. - No histologic evidence of Helicobacter organisms. C. STOMACH, BODY, BIOPSY: - Oxyntic mucosa without significant diagnostic abnormality. - No histologic evidence of Helicobacter organisms. D. ILEUM, TERMINAL, BIOPSY: - Ileal mucosa without significant diagnostic abnormality. E. COLON, BIOPSY: - Colonic mucosa with patchy repair/regenerati ve type changes. See comment. 04/29/2023 10:58 [facility] Diagnosis Comment The history of diverticulosis is noted. The findings can be seen in the setting of diverticular disease. Clinical and endoscopic correlation is recommended. 04/29/2023 10:58 [facility] Attestation There was significant resident/fellow involvement in the diagnostic evaluation of this case. By the signature below, the attending physician certifies that they have personally conducted a gross and/or microscopic examination of the described specimens and rendered or confirmed the above diagnosis. 04/29/2023 10:58 [facility] at 1058 Clinical History Gastritis, diverticulosis, hemorrhoids 04/29/2023 10:58 [facility] Gross Description A. Received in formalin labelled with proper patient identification (initials R, C) and duodenum Bx are four davis tissue fragments ranging from 0.3 x 0.2 x 0.1 cm to 0.5 x 0.2 x 0.2 cm. Entirely submitted in A1. B. Received in formalin labelled with proper patient identification (initials R, C) and antrum Bx is a davis tissue fragments, 0.5 x 0.4 x 0.2 cm. Entirely submitted in B1. C. Received in formalin labelled with proper patient identification (initials R, C) and body Bx is a davis tissue fragment, 0.5 x 0.3 x 0.2 cm. Entirely submitted in C1. D. Received in formalin labelled with proper patient identification (initials R, C) and terminal ileum Bx is a davis tissue fragment, 0.5 x 0.2 x 0.2 cm. Entirely submitted in D1. E. Received in formalin labelled with proper patient identification (initials R, C) and random colon bxs are 11 davis tissue fragments ranging from 0.1 cm in greatest dimension to 0.5 x 0.4 x 0.1 cm. Entirely submitted in E1-E3. MIGNON TOBIN(ASCP) 04/24/2023 10:37 04/29/2023 10:58 [facility] Resident/Dmitri w: Jorge Wilson MD 04/29/2023 10:[address] [facility] Performing Lab [facility] 04/29/2023 10:[address] [facility] Scanned Images 04/29/2023 10:[address] [facility] Tissue COLON STRUCTURE / Unknown 04/23/2023 12:42 EST 04/24/2023 8:07 EST Tissue specimen (specimen) PYLORIC ANTRUM STRUCTURE / Unknown 04/23/2023 12:42 EST 04/24/2023 8:07 EST Tissue specimen (specimen) GASTRIC CORPUS STRUCTURE / Unknown 04/23/2023 12:42 EST 04/24/2023 8:07 EST Tissue specimen (specimen) ILEAL STRUCTURE / Unknown 04/23/2023 12:42 EST 04/24/2023 8:07 EST Tissue specimen (specimen) COLON STRUCTURE / Unknown 04/23/2023 12:42 EST 04/24/2023 8:07 EST us Jaun Null MD PATHOLOGY ORDERABLES F inal Result [facility] [address] [place] [address] documented in this encounter Visit Diagnoses Diagnosis Encounter for other general examination documented in this encounter Care Teams Body Builder Apprentice Relationship Specialty Start Date End Date Unknown, Provider, PCP - General 04/08/23 documented as of this encounter
== END 2024-04-10 14:54 | disposition home or self-care (01) ==
LOC: LBN 14:53
PROVIDERS: Visit Provider Family Medicine
DX: N39.0 Urinary tract infection, site not specified (principal)
CPT/HCPCS: 81015; 87086

== ENCOUNTER 2025-01-14 18:24 | Outpatient (REF) | payer MEDICARE, SELFPAY | END 2025-01-14 18:25 | disposition home or self-care (01) | LOC: LBN 18:24 | PROVIDERS: Visit Provider Physician Assistant Medical | DX: R30.0 Dysuria (principal) | CPT/HCPCS: 81015; 87086 ==

== ENCOUNTER 2025-03-19 17:14 | Emergency (ER) | payer MEDICARE, SELFPAY ==
[2025-03-19] VITALS (27 sets, daily range): BP systolic 137–147; BP diastolic 62–125; PULSE 78–97; RESP 16–24; TEMP 37.1; O2SAT 92–99
--- NOTE | 2025-03-19 17:15 | RT.EKG_ITS ---
APPROVED REPORT Exam: Resting ECG Reason for Exam: dizzy Patient Location: E HR:95 bpm ECG Measurements Heart Rate 95 AXIS AK 144 P 74 QRSd 86 QRS -44 QT 342 T 66 QTc 432 Conclusion Sinus rhythm...normal P axis, V-rate 60- 99 Left axis deviation...QRS axis (-30,-90) No STEMI
--- NOTE | 2025-03-19 17:45 | DI.RAD_ITS ---
Exam(s) XR CHEST 2V PA LATERAL EXAM: XR CHEST 2V PA LATERAL CLINICAL HISTORY: nausea. TECHNIQUE: 2D digital imaging was performed. COMPARISON: CT CT ABDOMEN PELVIS W from 04/02/2023 FINDINGS: 2 views: Heart size is normal. The mediastinum is not widened. Right lung is clear. On the left side there is a density contiguous with the inferior left heart shadow which exhibits fat density and is probably focal extension of the pericardiac fat pad. There are no pleural effusions. IMPRESSION: Left pericardiac density which appears to exhibit fat density. Comparison 20 prior outside images would be helpful if they exist. DATA REPOSITORY: RADIATION DOSE DELIVERED:
[2025-03-19] MEDS: Ondansetron 4 MG/2 ML VIAL IVP (18:45)
[2025-03-19 18:52] LABS: Abs Immature Grans 0.03 10^3/uL (0.0-0.06); HCT 44.1 % (36.0-46.0); HGB 14.9 g/dL (11.2-15.7); Immature Grans % 0.3 %; MCH 30.6 pg (27.0-33.0); MCHC 33.8 % (32.0-36.0); MCV 91 fL (80-95); MPV 9.4 fL (8.0-11.0); Platelet Count 319 10^3/uL (130-400); RBC 4.87 10^6/uL (3.93-5.22); RDW 13.0 % (11.7-14.6); RDW-SD 42.5 fL; WBC 11.05 10^3/uL (4.4-10.8)
[2025-03-19 19:08] LABS: Lipase 46 U/L (<53); Magnesium 2.1 mg/dL (1.6-2.6)
[2025-03-19 19:09] LABS: ALT 13 U/L (10-49); AST 17 U/L (<34); Albumin 4.7 g/dL (3.2-5.0); Alkaline Phosphatase 98 U/L (46-116); Anion Gap 5.7 mmol/L (3-11); BUN 12 mg/dL (9-23); Bilirubin, Total 0.5 mg/dL (0.2-1.2); CO2 27.3 mmol/L (20.0-31.0); Calcium 9.9 mg/dL (8.3-10.6); Chloride 106 mmol/L (98-107); Glucose 98 mg/dL (74-106); Potassium 3.9 mmol/L (3.5-5.1); Sodium 139 mmol/L (136-145); Total Protein 7.6 g/dL (5.7-8.2)
[2025-03-19 19:25] LABS: Troponin I < 3 ng/L (<35)
--- NOTE | 2025-03-19 20:04 | W.ED.GENAD ---
Discharge Plan Disposition Patient Disposition: Home Discharge Details Clinical Impression: Enteritis, Nausea alone, Steatosis of liver, Adrenal nodule, Renal cyst Primary Care Provider: Cecelia,Local ED Provider: Maximiliano Butler Home Meds and New Rx's Prescriptions: New ondansetron 4 mg tablet,disintegrating 4 mg PO Q6H PRNQty: 20 0RF No Action cephalexin 500 mg capsule 500 mg PO QID trazodone 100 mg tablet 100 mg PO QHS clonazepam 1 mg tablet 1 mg PO DAILY PRN lithium carbonate 600 mg capsule 600 mg PO QHS paroxetine HCl [Paxil] 30 mg tablet 30 mg PO DAILY lisinopril 40 mg tablet 40 mg PO DAILY atorvastatin 40 mg tablet 40 mg PO QHS albuterol-budesonide 90-80 mcg/actuation HFA aerosol inhaler 2 inh inhalation ONCE PRN Rx Instructions: as a single dose; may repeat up to 6 doses per day (12 inhalations) mecobalamin (vitamin B12) 1,000 mcg tablet,chewable 1,000 mcg PO DAILY cholecalciferol (vitamin D3) 125 mcg (5,000 unit) capsule 125 mcg PO DAILY dicyclomine 10 mg capsule 10 mg PO BID nystatin 100,000 unit/gram cream 1 applic topical DAILY Discharge Instructions Instructions: Viral gastroenteritis in adults, Nausea and vomiting in adults Additional Instructions: Please follow-up with your primary care provider regarding your visit to the emergency department today. Be sure to discuss results of all test performed here today to include radiology, and laboratory testing as well as results for any pending cultures. Should your symptoms worsen, or if you develop new concerning symptoms, please return immediately emergency department for further evaluation. Stand Alone Forms: Portal Information HPI General Date/Time Provider Initiated Documentation: 03/19/25 17:22. HPI Narrative: MDM/Narrative: 60-year-old female with past medical history of IBS, current smoker, presents for evaluation of nausea x 12 days. Denies any associated pain, diarrhea, fever, chills or any other new or concerning symptoms. Vital signs within normal limits. Given advanced age will obtain screening imaging and labs. ED course: After treatment with Zofran, patient notes resolution of her symptoms. Screening labs are unremarkable, other than as leukocytosis with a lymphocytic predominance suggesting a viral etiology of the patient's symptoms. CT imaging is consistent with enteritis. Will discharge patient prescription for Zofran, instructions to return for new or worsening symptoms. Disposition: Home HPI: 60-year-old female presents for evaluation of nausea x 12 days which has been constant, unrelenting and not associate with any chest or abdominal pain. Patient denies any fevers, chills, bloody diarrhea, or any other new or concerning symptoms. She notes that she is a chronic smoker for the past 42 years, noting she is currently smoking half a pack a day. ROS: Negative besides as mentioned above Exam: Gen: A&O NAD HEENT: NCAT, EOMI, not icteric. External ears normal. No rhinorrhea. Moist mucous membranes. Neck: Supple, full range of motion, no observable masses, No meningeal sign. Lungs: No Respiratory distress. CV: RRR, no edema. Abdomen: Soft, nondistended, No rebound tenderness. MSK: No joint swelling, no redness. Skin: No rashes, petechiae, lesions. Normal color per patient. Neuro: Normal Gait, Grossly intact. Psych: Appropriate for situation. Rhythm: NSR Rate: 95 [place]: Leftward l axis Intervals: Normal intervals Other findings: No acute ST segment or T wave changes to suggest acute ischemia. Labs: Laboratory Tests Range/Units 03/19/25 03/19/25 18:36 19:50 WBC (4.4-10.8) 10^3/uL 11.05 H RBC (3.93-5.22) 10^6/uL 4.87 Hgb (11.2-15.7) g/dL 14.9 Hct (36.0-46.0) % 44.1 MCV (80-95) fL 91 MCH (27.0-33.0) pg 30.6 MCHC (32.0-36.0) % 33.8 RDW (11.7-14.6) % 13.0 Plt Count (130-400) 10^3/uL 319 MPV (8.0-11.0) fL 9.4 Immature Gran % % 0.3 Neutrophils % % 59.6 Lymphocytes % % 32.9 Monocytes % % 5.9 Eosinophils % % 0.8 Basophils % % 0.5 Nucleated RBC % (0.0-0.3) % 0.0 Absolute Neutrophils (1.2-6.7) 10^3/uL 6.59 Absolute Lymphocytes (1.2-3.4) 10^3/uL 3.64 H Absolute Monocytes (0.1-0.8) 10^3/uL 0.65 Absolute Eosinophils (0.0-0.7) 10^3/uL 0.09 Absolute Basophils (0.0-0.2) 10^3/uL 0.06 VBG Lactate (<or=2.0) mmol/L 1.3 Sodium (136-145) mmol/L 139 Potassium (3.5-5.1) mmol/L 3.9 Chloride (98-107) mmol/L 106 Carbon Dioxide (20.0-31.0) mmol/L 27.3 Anion Gap (3-11) mmol/L 5.7 BUN (9-23) mg/dL 12 Creatinine (0.55-1.02) mg/dL 0.97 Est GFR (CKD-EPI 2020) (mL/min/1.73m2) 58.57 Glucose (74-106) mg/dL 98 Calcium (8.3-10.6) mg/dL 9.9 Magnesium (1.6-2.6) mg/dL 2.1 Total Bilirubin (0.2-1.2) mg/dL 0.5 AST (<34) U/L 17 ALT (10-49) U/L 13 Alkaline Phosphatase (46-116) U/L 98 Troponin I (<35) ng/L < 3 < 3 NT-Pro-B Natriuret Pep (<300) pg/mL < 35 Total Protein (5.7-8.2) g/dL 7.6 Albumin (3.2-5.0) g/dL 4.7 Lipase (<53) U/L 46 Radiology: Accession No. : [id number] Creator : Steve Chawla Dictator : Steve Chawla Stone Driller : Pulverizer Feeder : Steve Chawla Approver2 : Report Date : 03/19/2025 19:15:45 Exam(s) XR CHEST 2V PA LATERAL EXAM: XR CHEST 2V PA LATERAL CLINICAL HISTORY: nausea. TECHNIQUE: 2D digital imaging was performed. COMPARISON: CT CT ABDOMEN PELVIS W from 04/02/2023 FINDINGS: 2 views: Heart size is normal. The mediastinum is not widened. Right lung is clear. On the left side there is a density contiguous with the inferior left heart shadow which exhibits fat density and is probably focal extension of the pericardiac fat pad. There are no pleural effusions. IMPRESSION: Left pericardiac density which appears to exhibit fat density. Comparison 20 prior outside images would be helpful if they exist. DATA REPOSITORY: RADIATION DOSE DELIVERED: PROCEDURE INFORMATION: Exam: CT Abdomen And Pelvis With Contrast Exam date and time: 03/19/2025 8:10 PM Age: 60 years old Clinical indication: Abdominal pain; Localized; Left lower quadrant (llq); Prior surgery; Surgery date: 6+ months; Surgery type: Salpingo-oophorectomy; Llq abd pain TECHNIQUE: Imaging protocol: Computed tomography of the abdomen and pelvis with contrast. Radiation optimization: All CT scans at this facility use at least one of these dose optimization techniques: automated exposure control; mA and/or kV adjustment per patient size (includes targeted exams where dose is matched to clinical indication); or iterative reconstruction. Contrast material: [id number]; Contrast volume: 75 ml; Contrast route: INTRAVENOUS (IV); COMPARISON: CT ABDOMEN PELVIS W 04/02/2023 2:31 PM FINDINGS: Lungs: Minor posterior bilateral lung base atelectasis. Pleural spaces: No pleural effusion. Heart: Normal heart size. No pericardial effusion. No coronary artery atherosclerotic calcium. Liver: Diffuse moderate fatty liver change. Gallbladder and biliary ducts: The gallbladder is normal in size and shape. No stones or inflammatory changes. Pancreas: Normal. No ductal dilation. Spleen: The spleen is normal in size, contour and attenuation. Adrenal glands: Left adrenal gland with a nodule which likely represents a benign adenoma measuring 16 x 14 mm. This is on the lateral limb of series 8: Image 20. No change since 04/02/2023. Right adrenal gland is unremarkable. No further imaging follow-up is recommended. LAKESHA GREENE Preliminary Radiology Report ERP PROGRAMMER (QA) DISCREPANCY? If there is a discrepancy between the preliminary and final interpretation, please notify [facility] via [email or web address]. If you do not have access to our QA portal, call our QA team at [phone] CONFIDENTIALITY STATEMENT This report is intended only for the use of the referring physician, and only in accordance with law, If you received this in error, call [phone] Page 2 of 2 Kidneys and ureters: No acute renal change. No obstructive uropathy or inflammatory features. Left lower pole calculus measuring 3 x 2 mm. Bilateral subcentimeter parenchymal cysts.No further imaging follow-up of the renal cysts is recommended based on MIPS criteria. Stomach and bowel: Gastric morphology is unremarkable. No edema. No gastric outlet obstruction. Small sliding hiatal hernia without acute change. Small bowel loops are normal in course. Within the left abdomen, there is mild mucosal enhancement suggested and minor thickening of the jejunal wall. Can not exclude a mild small bowel enteritis. No obstructive features or ischemic change. Large bowel is normal in course and caliber. There is scattered diverticulosis without acute diverticulitis. Appendix: Non inflamed appendix on series 8: Image 69. Intraperitoneal space: No free fluid. No free air. Vasculature: Unremarkable. No abdominal aortic aneurysm. Lymph nodes: Unremarkable. No enlarged lymph nodes. Urinary bladder: Urinary bladder is unremarkable in appearance. No wall thickening. No intravesicular calculi. No intravesicular gas. Reproductive: Uterus and adnexa are unremarkable. A uterine calcification is noted suggesting a degenerative fibroid measuring 7 mm. Stable since 2022. Bones/joints: No acute skeletal pathology. Soft tissues: Abdominal wall soft tissues are unremarkable. Minor fat containing umbilical hernia without acute change. IMPRESSION: 1. Mild small bowel enteritis suggested. 2. Colonic diverticulosis without diverticulitis. 3. Hepatic steatosis. 4. Stable benign-appearing left adrenal nodule. 5. Nonobstructive small left renal calculus. Bilateral subcentimeter benign renal cysts. Thank you for allowing us to participate in the care of your patient. Dictated and Authenticated by: Renny Sweet MD Related Data Home Medications ?Medication ?Instructions ?Recorded ?Confirmed albuterol 90 mcg-budesonide 80 2 inh inhalation ONCE PRN 04/15/23 04/23/23 mcg/actuation HFA aerosol inhaler atorvastatin 40 mg tablet 40 mg PO QHS 04/15/23 04/23/23 cholecalciferol (vitamin D3) 125 125 mcg PO DAILY 04/15/23 04/23/23 mcg (5,000 unit) capsule clonazepam 1 mg tablet 1 mg PO DAILY PRN 04/15/23 04/23/23 lisinopril 40 mg tablet 40 mg PO DAILY 04/15/23 04/23/23 lithium carbonate 600 mg capsule 600 mg PO QHS 04/15/23 04/23/23 mecobalamin (vitamin B12) 1,000 1,000 mcg PO DAILY 04/15/23 04/23/23 mcg chewable tablet paroxetine HCl 30 mg tablet (Paxil) 30 mg PO DAILY 04/15/23 04/23/23 trazodone 100 mg tablet 100 mg PO QHS 04/15/23 04/23/23 dicyclomine 10 mg capsule 10 mg PO BID 06/18/23 nystatin 100,000 unit/gram topical 1 applic topical DAILY 06/18/23 cream cephalexin 500 mg capsule 500 mg PO QID 08/02/23 ondansetron 4 mg disintegrating 4 mg PO Q6H PRN #20 tabs 03/19/25 tablet Previous Rx's ?Medication ?Instructions ?Recorded ondansetron 4 mg disintegrating 4 mg PO Q6H PRN #20 tabs 03/19/25 tablet Allergies Allergy/AdvReac Type Severity Reaction Status Date / Time doxycycline Allergy Severe Anaphylaxis Unverified 03/19/25 17:25 tetracycline Allergy Severe Anaphylaxis Unverified 03/19/25 17:25 General Stated Complaint: Dizzy/Sync CAROLYN: 3 Course Vital Signs Vital signs: Vital Signs Temperature 37.1 C 03/19/25 17:22 Pulse 97 H 03/19/25 17:22 Respiratory Rate 16 03/19/25 17:22 Blood Pressure 137/68 03/19/25 17:22 Pulse Oximetry 97 03/19/25 17:22 Temperature 37.1 C 03/19/25 17:22 Temperature Source Temporal Artery Scan 03/19/25 17:22 Pulse 97 H 03/19/25 17:22 Respiratory Rate 16 03/19/25 17:22 Blood Pressure 137/68 03/19/25 17:22 Blood Pressure Position Sitting 03/19/25 17:22 Pulse Oximetry 97 03/19/25 17:22 Oxygen Delivery Method Room Air 03/19/25 17:22 Oxygen Flow Rate 0 03/19/25 17:22 Pain Level 0 03/19/25 17:22 Lab/Test Results Lab/Test Results: Laboratory Tests Range/Units 03/19/25 18:36 WBC (4.4-10.8) 10^3/uL 11.05 H RBC (3.93-5.22) 10^6/uL 4.87 Hgb (11.2-15.7) g/dL 14.9 Hct (36.0-46.0) % 44.1 MCV (80-95) fL 91 MCH (27.0-33.0) pg 30.6 MCHC (32.0-36.0) % 33.8 RDW (11.7-14.6) % 13.0 Plt Count (130-400) 10^3/uL 319 MPV (8.0-11.0) fL 9.4 Immature Gran % % 0.3 Neutrophils % % 59.6 Lymphocytes % % 32.9 Monocytes % % 5.9 Eosinophils % % 0.8 Basophils % % 0.5 Nucleated RBC % (0.0-0.3) % 0.0 Absolute Neutrophils (1.2-6.7) 10^3/uL 6.59 Absolute Lymphocytes (1.2-3.4) 10^3/uL 3.64 H Absolute Monocytes (0.1-0.8) 10^3/uL 0.65 Absolute Eosinophils (0.0-0.7) 10^3/uL 0.09 Absolute Basophils (0.0-0.2) 10^3/uL 0.06 VBG Lactate (<or=2.0) mmol/L 1.3 Sodium (136-145) mmol/L 139 Potassium (3.5-5.1) mmol/L 3.9 Chloride (98-107) mmol/L 106 Carbon Dioxide (20.0-31.0) mmol/L 27.3 Anion Gap (3-11) mmol/L 5.7 BUN (9-23) mg/dL 12 Creatinine (0.55-1.02) mg/dL 0.97 Est GFR (CKD-EPI 2020) (mL/min/1.73m2) 58.57 Glucose (74-106) mg/dL 98 Calcium (8.3-10.6) mg/dL 9.9 Magnesium (1.6-2.6) mg/dL 2.1 Total Bilirubin (0.2-1.2) mg/dL 0.5 AST (<34) U/L 17 ALT (10-49) U/L 13 Alkaline Phosphatase (46-116) U/L 98 Troponin I (<35) ng/L < 3 NT-Pro-B Natriuret Pep (<300) pg/mL < 35 Total Protein (5.7-8.2) g/dL 7.6 Albumin (3.2-5.0) g/dL 4.7 Lipase (<53) U/L 46 PFSH All Active Problems (Updated 03/19/25 @ 21:03 by Maximiliano Butler MD) Renal cyst (Acute) Adrenal nodule (Acute) Steatosis of liver (Acute) Nausea alone (Acute) Enteritis (Acute) Foreign body of uterus (Acute) Abdominal bloating (Acute) Abdominal pain (Acute) Ileocolitis (Acute) Adenomatous polyps (Acute) Acute diarrhea (Acute) Fatigue (Acute) Medical History (Updated 03/19/25 @ 21:03 by Maximiliano Butler MD) Smoker Vertigo Fibroid uterus pt unaware of this diagnosis, never been discussed with pt [employer] (inclusion body myositis) Dysuria Peripheral artery disease Anxiety Depression HLD (hyperlipidemia) Asthma Systemic hypertension Surgical History (Updated 08/02/23 @ 11:07 by Joellen San DO) History of dilation and curettage History of left salpingo-oophorectomy History of tubal ligation H/O colonoscopy with polypectomy Social History Smoking/Tobacco Use Status: Current every day Tobacco Type: cigarettes Smoking risk assessment performed?: Yes Alcohol Intake: current Alcohol Intake frequency: holidays/special occasions only Alcohol type: beer and wine Substance use type: does not use Housing: house Do you feel safe at home: Yes Do you feel safe in your relationship?: Yes Additional Social history: unable to assess privately-04/23/22 History History 3 Para 2 Hx # Term Pregnancies 2 Multiple births Hx # Pregnancies Ectopic pregnancies AB induced Hx Number of Living Children 2 AB spontaneous
[2025-03-19 20:24] LABS: Troponin I < 3 ng/L (<35)
[2025-03-19] MEDS: Omnipaque 350 MG/ML 100 ML BTL IJ (20:25)
[2025-03-19] MEDS: Normal Saline - Diluent 50 ML VIAL IJ (20:26)
[2025-03-19] MEDS: Normal Saline Flush 10 ML SYR IVP (20:26)
--- NOTE | 2025-03-19 20:27 | DI.CT_ITS ---
Exam(s) CT ABDOMEN PELVIS W EXAM: CT ABDOMEN PELVIS W CLINICAL HISTORY: LLQ abdominal pain. TECHNIQUE: Imaging Protocol: Axial computed tomography images with coronal and sagittal reformatted images were created and reviewed CONTRAST MATERIAL: Intravenous: Omnipaque 350 Contrast volume:75 ml Oral: no COMPARISON: CT CT ABDOMEN PELVIS W from 04/02/2023 FINDINGS: ABDOMEN and PELVIS: Lung Bases: No acute findings. Liver: Normal density. No suspicious mass. Gallbladder and biliary tract: No radiodense calculus. No wall thickening or pericholecystic fluid. No biliary dilation. Pancreas: Normal density. No abnormal calcifications or inflammatory process. No evidence of mass. Spleen: Normal. Kidneys: Normal size, contour and axis. Nonobstructing stone lower pole left kidney. No obstructive uropathy. Stable small bilateral cysts. No follow-up recommended. No suspicious masses seen. Adrenal glands: Stable small left adrenal adenoma. No follow-up recommended. Vasculature: Abdominal aorta non-dilated. [id number] atherosclerotic changes. Soft tissues: Unremarkable. Bladder: No gross wall thickening. No calculi.No focal mass. Bowel: The stomach is unremarkable. There is mild distention of proximal jejunum which could indicate enteritis. No obstruction. No bowel wall thickening. Appendix normal.Diverticulosis of the descending and sigmoid colon. No evidence of diverticulitis. Peritoneal cavity: No ascites. No focal collection. No mesenteric inflammatory response. No free air. Bones: Unremarkable for age. Reproductive organs: The right ovary appears normal. Status post left oophorectomy. Stable appearance of calcified uterine fibroid. Lymph nodes: No pathologically enlarged lymph nodes. IMPRESSION:: Question of jejunal enteritis. Diverticulosis without evidence of diverticulitis. Non-obstructing stone lower pole left kidney. The preliminary [facility] report was reviewed. RADIATION DOSE DELIVERED: Total DLP DATA REPOSITORY: All CT scans at this facility are submitted to the National Radiology Data Registry (NRDR) Dose Index Registry (DIR) with the [employer] (A[employer]). RADIATION OPTIMIZATION: All CT scans at this facility use at least one of these dose optimization techniques: automated exposure control; mA and/or kV adjustment per patient size (includes targeted exams where dose is matched to clinical indication); or iterative reconstruction.
--- NOTE | 2025-03-19 20:56 | DI.VRAD_ITS ---
PROCEDURE INFORMATION: Exam: CT Abdomen And Pelvis With Contrast Exam date and time: 03/19/2025 8:10 PM Age: 60 years old Clinical indication: Abdominal pain; Localized; Left lower quadrant (llq); Prior surgery; Surgery date: 6+ months; Surgery type: Salpingo-oophorectomy; Llq abd pain TECHNIQUE: Imaging protocol: Computed tomography of the abdomen and pelvis with contrast. Radiation optimization: All CT scans at this facility use at least one of these dose optimization techniques: automated exposure control; mA and/or kV adjustment per patient size (includes targeted exams where dose is matched to clinical indication); or iterative reconstruction. Contrast material: [id number]; Contrast volume: 75 ml; Contrast route: INTRAVENOUS (IV); COMPARISON: CT ABDOMEN PELVIS W 04/02/2023 2:31 PM FINDINGS: Lungs: Minor posterior bilateral lung base atelectasis. Pleural spaces: No pleural effusion. Heart: Normal heart size. No pericardial effusion. No coronary artery atherosclerotic calcium. Liver: Diffuse moderate fatty liver change. Gallbladder and biliary ducts: The gallbladder is normal in size and shape. No stones or inflammatory changes. Pancreas: Normal. No ductal dilation. Spleen: The spleen is normal in size, contour and attenuation. Adrenal glands: Left adrenal gland with a nodule which likely represents a benign adenoma measuring 16 x 14 mm. This is on the lateral limb of series 8: Image 20. No change since 04/02/2023. Right adrenal gland is unremarkable. No further imaging follow-up is recommended. Kidneys and ureters: No acute renal change. No obstructive uropathy or inflammatory features. Left lower pole calculus measuring 3 x 2 mm. Bilateral subcentimeter parenchymal cysts.No further imaging follow-up of the renal cysts is recommended based on MIPS criteria. Stomach and bowel: Gastric morphology is unremarkable. No edema. No gastric outlet obstruction. Small sliding hiatal hernia without acute change. Small bowel loops are normal in course. Within the left abdomen, there is mild mucosal enhancement suggested and minor thickening of the jejunal wall. Can not exclude a mild small bowel enteritis. No obstructive features or ischemic change. Large bowel is normal in course and caliber. There is scattered diverticulosis without acute diverticulitis. Appendix: Non inflamed appendix on series 8: Image 69. Intraperitoneal space: No free fluid. No free air. Vasculature: Unremarkable. No abdominal aortic aneurysm. Lymph nodes: Unremarkable. No enlarged lymph nodes. Urinary bladder: Urinary bladder is unremarkable in appearance. No wall thickening. No intravesicular calculi. No intravesicular gas. Reproductive: Uterus and adnexa are unremarkable. A uterine calcification is noted suggesting a degenerative fibroid measuring 7 mm. Stable since 2022. Bones/joints: No acute skeletal pathology. Soft tissues: Abdominal wall soft tissues are unremarkable. Minor fat containing umbilical hernia without acute change. IMPRESSION: 1. Mild small bowel enteritis suggested. 2. Colonic diverticulosis without diverticulitis. 3. Hepatic steatosis. 4. Stable benign-appearing left adrenal nodule. 5. Nonobstructive small left renal calculus. Bilateral subcentimeter benign renal cysts. Dictated and Authenticated by: Renny Sweet MD. Orderin Luke Viera MD
== END 2025-03-19 21:31 | disposition home or self-care (01) ==
PROVIDERS: Emergency Provider General Practice
DX: K52.9 Noninfective gastroenteritis and colitis, unspecified (principal); R11.0 Nausea; K76.0 Fatty (change of) liver, not elsewhere classified; E27.9 Disorder of adrenal gland, unspecified; N28.1 Cyst of kidney, acquired; E78.5 Hyperlipidemia, unspecified; F17.210 Nicotine dependence, cigarettes, uncomplicated
CPT/HCPCS: 36415; 80053; 83690; 93005; 96374; 99285; 71046; 74177; 83605; 83735; 83880; 84484; 85025; 93010; J2405; J3490